=== PATIENT | female | born 1980 | race Caucasian/White ===

== ENCOUNTER 2016-07-17 08:47 | Emergency (ER) | payer BC, SELFPAY ==
[~2016-07-17 08:47] MED LIST: CLARITIN10 M6 PO; IBUPROFEN800 M1 PO; IBUPROFEN800 MG PO; LORTAB 5-500 T1 EAC1 PO; LORTAB 5/500 TA1 TAB PO; MOTRIN800 MG PO; NORCO 5-325 TA1 EACH PO; NORCO 5/3251 TAB PO; PERCOCET 5/3251 TAB PO; PERCOCET 5MG/AP1 TAB PO; PRENATAL MULTI1 EAC5 PO; PRENATAL1 EACH PO; PRENATAL1 TAB
[2016-07-17 09:54] LABS: ALB/GLOB RATIO 1.3 (0.8-2.0); ALKALINE PHOSPHATASE 53 U/L (33-138); ALT/SGPT 19 U/L (12-78); ANION GAP 12 mmol/L (0-20); AST/SGOT 12 U/L (10-40); BILIRUBIN,TOTAL 1.5 mg/dl (0-1.5); BLOOD UREA NITROGEN 14 mg/dl (6-24); CALCIUM 8.6 mg/dl (8.5-10.5); CARBON DIOXIDE-VENOUS 23 mmol/L (22-32); CHLORIDE 112 mmol/l (96-110); CREATININE 0.74 mg/dl (0.50-1.10); GLUCOSE 91 mg/dL (70-110); LIPASE 71 U/L (73-393); POTASSIUM 3.7 mmol/L (3.7-5.1); SODIUM 143 mmol/L (135-145); eGFR VALUE FOR BLACK >90 mL/Min
[2016-07-17 09:55] LABS: URINE APPEARANCE CLEAR; URINE BILIRUBIN NEGATIVE (NEG); URINE BLOOD LARGE (NEG); URINE COLOR YELLOW; URINE GLUCOSE (UA) NEGATIVE (NEG); URINE KETONE SMALL (NEG); URINE LEUKOCYTE ESTERASE POSITIVE (NEG); URINE NITRITE NEGATIVE (NEG); URINE PROTEIN NEGATIVE (NEG)
[2016-07-17 09:56] LABS: BASO % 0.5 % (0-2); EOS % 1.8 % (0-7); EOSINOPHIL ABSOLUTE COUNT 0.1 tho/cmm (0.0-0.7); HCT-HEMATOCRIT 38.2 % (34.0-49.0); HGB-HEMOGLOBIN 13.1 gm/dl (12.0-15.5); LYMPH % 15.9 % (20-45); LYMPH ABSOLUTE COUNT 0.9 tho/cmm (0.8-4.5); MCH (MEAN CORPUSCULAR HGB) 29.8 pg (28.0-32.0); MCHC MEAN CORPUSCULAR HGB CONC 34.3 % (32.0-36.0); MONO % 5.9 % (0-12); MONOCYTE ABSOLUTE COUNT 0.3 tho/cmm (0.0-1.2); NEUTROPHIL ABSOLUTE COUNT 4.2 tho/cmm (1.6-8.0); NEUTROPHIL-AUTOMATED 4.2 tho/cmm (1.6-8.0); NEUTROPHILS % 75.9 % (40-80); PLATELET COUNT 177 tho/cmm (150-450); RED BLOOD COUNT 4.39 mil/cmm (4.00-5.20); RED CELL DISTRIBUTION WIDTH 12.2 % (12.4-16.4); WHITE BLOOD COUNT 5.6 tho/cmm (4.0-10.0)
[2016-07-17 10:09] LABS: PREGNANCY-SERUM NEGATIVE (NEGATIVE)
[2016-07-17 10:15] LABS: URINE MUCUS 3+
[2016-07-17] MEDS ORDERED: PERCOCET 5-3251 EACH PO (12:27)
[2016-07-17] MEDS ORDERED: ZOFRAN4 M2 PO (12:27)
== END 2016-07-17 12:43 ==
LOC: EDMED 08:47
PROVIDERS: Emergency Medicine; Physician Assistant
DX: N13.1 Hydronephrosis with ureteral stricture, not elsewhere classified (principal); Z90.89 Acquired absence of other organs
CPT/HCPCS: J1170; J1885; J2405; J7030